=== PATIENT | male | born 1950 | race Caucasian/White ===

== ENCOUNTER 2020-02-10 14:38 | Inpatient (IN) ==
[2020-02-10] MEDS ORDERED: Acetaminophen 325 MG TABLET PO PRN (17:09)
[2020-02-10] MEDS ORDERED: *HR* Promethazine 25 MG/ML VIAL IVP PRN (17:09)
[2020-02-10] MEDS: MethylPREDNISolone 40 MG/ML VIAL IVP SCH ×2 (17:47→23:33)
[2020-02-10 18:26] LABS: ABG Base Excess 10 mEq/L (-2 to 3); ABG HCO3 37 mEq/L (21-27); ABG Oxygen Saturation 98 % (95-98); ABG PCO2 60 mmHg (35-45); ABG PH 7.39 pH Units (7.32-7.45); ABG PO2 116 mmHg (85-104); ABG TCO2 39 mEq/L (20-26)
[2020-02-10] MEDS: Pantoprazole 40 MG VIAL IVP SCH (18:32)
[2020-02-10] MEDS ORDERED: 0.9 % Sodium Chloride 1,000 ML IVC ONE (19:48)
[2020-02-10] MEDS ORDERED: Albuterol 2.5 MG/3 ML NEBULIZER IH SCH (20:00)
[2020-02-10] MEDS: Budesonide/Formoterol 160/4.5 1 PUFF INH IH SCH (20:51)
[2020-02-10] MEDS ORDERED: Azithromycin 500 MG in 0.9 % Sodium Chloride 250 ML IVPB SCH (22:00)
[2020-02-10 22:14] LABS: C.difficile Toxin A/B Gene PCR Not detected (Not detect); Campylobacter by PCR Not detected (Not detect); Enteroaggregative E.coli(EAEC) Not detected (Not detect); Enteropathogenic E.coli(EPEC) Not detected (Not detect); Enterotoxigenic E.coli (ETEC) Not detected (Not detect); Plesiomonas shigelloides PCR Not detected (Not detect); Salmonella PCR Not detected (Not detect); Shigalike tox-prod E coli STEC Not detected (Not detect); Vibrio PCR Not detected (Not detect); Vibrio cholerae PCR Not detected (Not detect); Yersinia enterocolitica PCR Not detected (Not detect)
[2020-02-10 22:15] LABS: Adenovirus F 40/41 PCR Not detected (Not detect); Astrovirus PCR Not detected (Not detect); Cryptosporidium by PCR Not detected (Not detect); Cyclospora cayetanensis PCR Not detected (Not detect); E. coli O157 by PCR Not detected (Not detect); Entamoeba histolytica PCR Not detected (Not detect); Giardia lamblia PCR Not detected (Not detect); Norovirus GI/GII PCR Not detected (Not detect); Rotavirus A PCR Not detected (Not detect); Sapovirus PCR Not detected (Not detect); Shig/EnteroinvasiveE coli EIEC Not detected (Not detect)
[2020-02-11 02:03] LABS: Basophils % 0.1 %; Hematocrit 35.2 % (37.5-50.1); Hemoglobin 10.6 g/dL (12.9-16.9); Immature Granulocytes % 0.8 % (0-4); Lymphocytes # 0.3 K/mcL (0.6-4.6); Lymphocytes % 2.7 %; Mean Corpuscular HGB Conc 30.1 g/dL (31.6-35.5); Mean Corpuscular Hemoglobin 26.4 pg (28.0-33.3); Mean Corpuscular Volume 87.6 fL (83.0-100.0); Mean Platelet Volume 10.9 fL (9.4-12.4); Monocytes # 0.2 K/mcL (0.0-1.3); Monocytes % 1.4 %; Neutrophils # 11.6 K/mcL (1.6-8.9); Platelet Count 235 K/mcL (140-400); Red Blood Count 4.02 M/mcL (4.19-5.50); Red Cell Distribution Width 16.1 % (11.5-14.5); White Blood Count 12.2 K/mcL (4.3-11.1)
[2020-02-11 02:13] LABS: BUN/Creatinine Ratio 43 (6-26); Blood Urea Nitrogen 19 mg/dL (8-23); Calcium 7.3 mg/dL (8.6-10.3); Carbon Dioxide 31 mEq/L (23-29); Chloride 103 mEq/L (98-107); Glucose 217 mg/dL (70-105); Osmolality,Calculated 297 (280-300); Potassium 4.7 mEq/L (3.5-5.1); Sodium 139 mEq/L (136-145); eGFR For African Americans > 60 (> 60); eGFR For Non-African Americans > 60 (> 60)
[2020-02-11] MEDS ORDERED: Cefepime HCl 2,000 MG in Water for inj. (sterile) 20 ML IVP SCH (03:00)
[2020-02-11] MEDS: Calcium Gluconate 1gm/50mL 1 GM/50 ML BAG IVPB SCH ×2 (04:39→05:29)
[2020-02-11] MEDS: Pantoprazole 40 MG VIAL IVP SCH ×2 (05:02→16:36)
[2020-02-11] MEDS ORDERED: *HR* Enoxaparin 40 MG/0.4 ML SYRINGE SQ SCH (06:00)
[2020-02-11] MEDS ORDERED: Furosemide 20 MG/2 ML VIAL IVP ONE (07:29)
[2020-02-11] MEDS: MethylPREDNISolone 40 MG/ML VIAL IVP SCH ×2 (07:32→16:36)
[2020-02-11] MEDS: Preparation H Ointment 57 GM TUBE RC SCH ×2 (07:32→21:13)
[2020-02-11] MEDS: Budesonide/Formoterol 160/4.5 1 PUFF INH IH SCH ×2 (08:26→20:36)
[2020-02-11] MEDS: Tiotropium 18 MCG inhalation IH SCH (08:26)
[2020-02-11] MEDS: DilTIAZem CD (24hr) 120 MG CAP.ER.24H PO SCH (11:04)
[2020-02-11] MEDS: Cefepime HCl 2,000 MG in Water for inj. (sterile) 20 ML IVP SCH ×2 (11:04→21:11)
[2020-02-11] MEDS: clonazePAM 0.5 MG TABLET PO PRN (13:37)
[2020-02-11 17:38] LABS: Hemoglobin 11.5 g/dL (12.9-16.9); Mean Corpuscular HGB Conc 30.3 g/dL (31.6-35.5); Mean Corpuscular Hemoglobin 26.8 pg (28.0-33.3); Mean Corpuscular Volume 88.6 fL (83.0-100.0); Mean Platelet Volume 10.7 fL (9.4-12.4); Platelet Count 282 K/mcL (140-400); Red Blood Count 4.29 M/mcL (4.19-5.50); Red Cell Distribution Width 16.3 % (11.5-14.5)
[2020-02-11 17:40] LABS: White Blood Count 19.1 K/mcL (4.3-11.1)
[2020-02-11] MEDS: Doxycycline 100 MG CAPSULE PO SCH (21:10)
[2020-02-11] MEDS: traZODone 50 MG TABLET PO SCH (21:10)
[2020-02-12] MEDS: MethylPREDNISolone 40 MG/ML VIAL IVP SCH ×3 (01:53→16:53)
[2020-02-12 02:32] LABS: Hemoglobin 9.6 g/dL (12.9-16.9); Red Blood Count 3.58 M/mcL (4.19-5.50); White Blood Count 18.7 K/mcL (4.3-11.1)
[2020-02-12 02:33] LABS: Hematocrit 32.1 % (37.5-50.1); Mean Corpuscular HGB Conc 29.9 g/dL (31.6-35.5); Mean Corpuscular Hemoglobin 26.8 pg (28.0-33.3); Mean Corpuscular Volume 89.7 fL (83.0-100.0); Mean Platelet Volume 10.2 fL (9.4-12.4); Platelet Count 231 K/mcL (140-400); Red Cell Distribution Width 16.1 % (11.5-14.5)
[2020-02-12 02:39] LABS: BUN/Creatinine Ratio 61 (6-26); Blood Urea Nitrogen 28 mg/dL (8-23); Calcium 7.8 mg/dL (8.6-10.3); Carbon Dioxide 36 mEq/L (23-29); Chloride 105 mEq/L (98-107); Glucose 174 mg/dL (70-105); Osmolality,Calculated 304 (280-300); Sodium 142 mEq/L (136-145); eGFR For African Americans > 60 (> 60); eGFR For Non-African Americans > 60 (> 60)
[2020-02-12] MEDS: Cefepime HCl 2,000 MG in Water for inj. (sterile) 20 ML IVP SCH ×3 (04:07→21:31)
[2020-02-12] MEDS: Pantoprazole 40 MG VIAL IVP SCH ×2 (04:09→16:53)
[2020-02-12] MEDS: Levalbuterol 1 PUFF INHALER IH SCH ×5 (07:41→23:23)
[2020-02-12] MEDS: Budesonide/Formoterol 160/4.5 1 PUFF INH IH SCH ×2 (07:42→19:42)
[2020-02-12] MEDS: DilTIAZem CD (24hr) 120 MG CAP.ER.24H PO SCH (09:21)
[2020-02-12] MEDS: Preparation H Ointment 57 GM TUBE RC SCH ×2 (09:21→21:35)
[2020-02-12] MEDS: Doxycycline 100 MG CAPSULE PO SCH ×2 (09:21→21:32)
[2020-02-12] MEDS: clonazePAM 0.5 MG TABLET PO PRN ×2 (09:25→21:37)
[2020-02-12] MEDS: Tiotropium 18 MCG inhalation IH SCH (10:37)
[2020-02-12 11:10] LABS: Hematocrit 34.4 % (37.5-50.1); Hemoglobin 10.6 g/dL (12.9-16.9)
[2020-02-12 16:38] LABS: Hematocrit 33.9 % (37.5-50.1); Hemoglobin 10.7 g/dL (12.9-16.9)
[2020-02-12] MEDS ORDERED: Water for inj. (sterile) 20 ML IV ONE (21:30)
[2020-02-12] MEDS: traZODone 50 MG TABLET PO SCH (21:32)
[2020-02-13 02:17] LABS: BUN/Creatinine Ratio 77 (6-26); Blood Urea Nitrogen 37 mg/dL (8-23); Calcium 7.9 mg/dL (8.6-10.3); Carbon Dioxide 38 mEq/L (23-29); Chloride 103 mEq/L (98-107); Glucose 159 mg/dL (70-105); Hematocrit 30.3 % (37.5-50.1); Hemoglobin 9.3 g/dL (12.9-16.9); Immature Granulocytes % 0.9 % (0-4); Lymphocytes # 0.4 K/mcL (0.6-4.6); Lymphocytes % 1.6 %; Mean Corpuscular HGB Conc 30.7 g/dL (31.6-35.5); Mean Corpuscular Hemoglobin 26.7 pg (28.0-33.3); Mean Corpuscular Volume 87.1 fL (83.0-100.0); Mean Platelet Volume 10.6 fL (9.4-12.4); Monocytes # 0.6 K/mcL (0.0-1.3); Monocytes % 2.8 %; Osmolality,Calculated 304 (280-300); Platelet Count 224 K/mcL (140-400); Potassium 4.2 mEq/L (3.5-5.1); Red Blood Count 3.48 M/mcL (4.19-5.50); Red Cell Distribution Width 16.1 % (11.5-14.5); Segmented Neutrophils % 94.7 %; Sodium 141 mEq/L (136-145); White Blood Count 22.2 K/mcL (4.3-11.1); eGFR For African Americans > 60 (> 60); eGFR For Non-African Americans > 60 (> 60)
[2020-02-13] MEDS: Levalbuterol 1 PUFF INHALER IH SCH ×6 (03:37→23:36)
[2020-02-13] MEDS: Cefepime HCl 2,000 MG in Water for inj. (sterile) 20 ML IVP SCH ×3 (04:28→19:40)
[2020-02-13] MEDS: Pantoprazole 40 MG VIAL IVP SCH ×2 (05:33→17:57)
[2020-02-13] MEDS: Budesonide/Formoterol 160/4.5 1 PUFF INH IH SCH ×2 (07:26→19:44)
[2020-02-13] MEDS: Doxycycline 100 MG CAPSULE PO SCH ×2 (08:53→19:39)
[2020-02-13] MEDS: DilTIAZem CD (24hr) 120 MG CAP.ER.24H PO SCH (08:53)
[2020-02-13] MEDS: predniSONE 20 MG TABLET PO SCH ×2 (08:53→19:40)
[2020-02-13] MEDS: Preparation H Ointment 57 GM TUBE RC SCH ×2 (09:22→19:49)
[2020-02-13] MEDS: Tiotropium 18 MCG inhalation IH SCH (11:14)
[2020-02-13 16:41] LABS: Bilirubin,Urine Negative (Negative); Blood,Urine Negative (Negative); Clarity,Urine Clear (Clear); Color,Urine Light-Yellow (Yellow); Glucose,Urine (UA) Normal (Normal); Hyaline Casts,Urine Few per lpf (None Seen); Ketones,Urine Negative (Negative); Leukocyte Esterase,Urine Negative (Negative); Mucus,Urine Few per lpf (None-Few); Nitrite,Urine Negative (Negative); PH,Urine 6.5 pH Units (5.0-8.0); Protein,Urine 50 mg/dL (Neg-Trace); Specific Gravity,Urine > 1.030 (1.010-1.025); Squamous Epithelial Cell,Urine Few per hpf (None-Few); Urobilinogen,Urine Normal (Normal)
[2020-02-13] MEDS: traZODone 50 MG TABLET PO SCH (19:39)
[2020-02-13] MEDS: clonazePAM 0.5 MG TABLET PO PRN (20:37)
[2020-02-14 01:32] LABS: Hematocrit 33.7 % (37.5-50.1); Immature Granulocytes % 1.1 % (0-4); Lymphocytes # 0.3 K/mcL (0.6-4.6); Lymphocytes % 1.6 %; Mean Corpuscular HGB Conc 29.7 g/dL (31.6-35.5); Mean Corpuscular Hemoglobin 26.3 pg (28.0-33.3); Mean Corpuscular Volume 88.7 fL (83.0-100.0); Mean Platelet Volume 10.4 fL (9.4-12.4); Monocytes # 0.4 K/mcL (0.0-1.3); Monocytes % 1.8 %; Neutrophils # 19.6 K/mcL (1.6-8.9); Platelet Count 221 K/mcL (140-400); Red Cell Distribution Width 16.3 % (11.5-14.5); Segmented Neutrophils % 95.5 %; White Blood Count 20.5 K/mcL (4.3-11.1)
[2020-02-14 01:43] LABS: BUN/Creatinine Ratio 84 (6-26); Blood Urea Nitrogen 36 mg/dL (8-23); Calcium 8.4 mg/dL (8.6-10.3); Carbon Dioxide 39 mEq/L (23-29); Chloride 100 mEq/L (98-107); Glucose 164 mg/dL (70-105); Magnesium 2.1 mg/dL (1.6-2.6); Osmolality,Calculated 304 (280-300); Phosphorous 2.4 mg/dL (2.7-4.5); Potassium 4.4 mEq/L (3.5-5.1); Sodium 141 mEq/L (136-145); eGFR For African Americans > 60 (> 60); eGFR For Non-African Americans > 60 (> 60)
[2020-02-14 02:34] LABS: A.galactomannan Ag Index 0.03
[2020-02-14] MEDS: Cefepime HCl 2,000 MG in Water for inj. (sterile) 20 ML IVP SCH ×3 (03:15→20:04)
[2020-02-14] MEDS: Levalbuterol 1 PUFF INHALER IH SCH ×6 (03:43→23:25)
[2020-02-14] MEDS: Pantoprazole 40 MG VIAL IVP SCH ×2 (05:19→17:59)
[2020-02-14] MEDS: Budesonide/Formoterol 160/4.5 1 PUFF INH IH SCH ×2 (07:17→19:43)
[2020-02-14 07:24] LABS: ANA IgG by ELISA NONE DETECTED (None Detected)
[2020-02-14] MEDS: DilTIAZem CD (24hr) 120 MG CAP.ER.24H PO SCH (09:42)
[2020-02-14] MEDS: Doxycycline 100 MG CAPSULE PO SCH ×2 (09:42→20:04)
[2020-02-14] MEDS: Preparation H Ointment 57 GM TUBE RC SCH ×2 (09:43→20:05)
[2020-02-14] MEDS: predniSONE 20 MG TABLET PO SCH ×2 (09:43→20:04)
[2020-02-14 10:47] LABS: Serine Protease-3 Antibody 13 AU/mL (0-19)
[2020-02-14] MEDS: Tiotropium 18 MCG inhalation IH SCH (11:07)
[2020-02-14] MEDS: clonazePAM 0.5 MG TABLET PO PRN (15:06)
[2020-02-14] MEDS ORDERED: Saline Nasal Spray 44 ML BOTTLE NS PRN (18:49)
[2020-02-14] MEDS: traZODone 50 MG TABLET PO SCH (20:04)
[2020-02-15] MEDS: Levalbuterol 1 PUFF INHALER IH SCH ×3 (03:43→11:08)
[2020-02-15 04:40] LABS: Basophils % 0.1 %; Hematocrit 33.6 % (37.5-50.1); Hemoglobin 10.3 g/dL (12.9-16.9); Immature Granulocytes % 1.1 % (0-4); Lymphocytes # 0.3 K/mcL (0.6-4.6); Lymphocytes % 1.6 %; Mean Corpuscular HGB Conc 30.7 g/dL (31.6-35.5); Mean Corpuscular Hemoglobin 27.2 pg (28.0-33.3); Mean Corpuscular Volume 88.7 fL (83.0-100.0); Mean Platelet Volume 10.1 fL (9.4-12.4); Monocytes # 0.4 K/mcL (0.0-1.3); Monocytes % 2.1 %; Neutrophils # 18.4 K/mcL (1.6-8.9); Platelet Count 184 K/mcL (140-400); Red Blood Count 3.79 M/mcL (4.19-5.50); Red Cell Distribution Width 16.5 % (11.5-14.5); Segmented Neutrophils % 95.1 %; White Blood Count 19.3 K/mcL (4.3-11.1)
[2020-02-15 05:01] LABS: BUN/Creatinine Ratio 72 (6-26); Blood Urea Nitrogen 31 mg/dL (8-23); Calcium 8.5 mg/dL (8.6-10.3); Carbon Dioxide 39 mEq/L (23-29); Chloride 98 mEq/L (98-107); Glucose 160 mg/dL (70-105); Magnesium 2.1 mg/dL (1.6-2.6); Osmolality,Calculated 298 (280-300); Phosphorous 2.9 mg/dL (2.7-4.5); Potassium 4.7 mEq/L (3.5-5.1); Sodium 139 mEq/L (136-145); eGFR For African Americans > 60 (> 60); eGFR For Non-African Americans > 60 (> 60)
[2020-02-15] MEDS: Cefepime HCl 2,000 MG in Water for inj. (sterile) 20 ML IVP SCH ×2 (05:39→11:11)
[2020-02-15] MEDS: Pantoprazole 40 MG VIAL IVP SCH (05:40)
[2020-02-15] MEDS: Budesonide/Formoterol 160/4.5 1 PUFF INH IH SCH (08:07)
[2020-02-15] MEDS: Tiotropium 18 MCG inhalation IH SCH (08:07)
[2020-02-15] MEDS: predniSONE 20 MG TABLET PO SCH (08:59)
[2020-02-15] MEDS: Doxycycline 100 MG CAPSULE PO SCH (08:59)
[2020-02-15] MEDS: DilTIAZem CD (24hr) 120 MG CAP.ER.24H PO SCH (08:59)
[2020-02-15] MEDS: Preparation H Ointment 57 GM TUBE RC SCH (09:00)
[2020-02-15 11:05] VITALS: BP 135/67
== END 2020-02-15 16:09 | DRG 871 ==
LOC: 2NENU → 3BNU 02-11 22:25 → 2ANU 02-12 12:11
PROVIDERS: ADMIT Internal Medicine; ATTEND Internal Medicine